=== PATIENT | male | born 2000 | race Caucasian/White ===

== ENCOUNTER 2025-03-01 17:37 | Emergency (ER) | payer SELFPAY ==
[~2025-03-01] VITALS: Ht 180.3 cm; Wt 93.0 kg
[2025-03-01 17:43] VITALS: O2SAT 95
[2025-03-01] MEDS: FOLIC ACID 1 MG, THIAMINE HCL 100 MG, MVI, ADULT NO.1 10 ML in DEXTROSE 5% WATER 1,000 ML IV ONE (18:00)
[2025-03-01 18:52] LABS: BASOPHILS % 0.3 % (0.0-2.0); EOSINOPHILS % 0.3 % (0.0-5.0); HEMATOCRIT. 48.0 % (42.0-52.0); HEMOGLOBIN. 16.5 g/dL (14.0-18.0); LYMPHOCYTES % 40.8 % (20.0-50.0); MEAN PLATELET VOLUME 8.9 fl (7.4-10.4); MONOCYTES % 5.7 % (2.0-8.0); NEUTROPHILS % 52.9 % (40.0-76.0); PLATELET 199 x1000/uL (130-400); RED BLOOD CELL COUNT 5.29 mill/uL (4.7-6.1); RED CELL DISTRIBUTION WIDTH 12.6 % (11.6-14.6)
[2025-03-01 19:11] LABS: CREATININE 1.1 mg/dL (0.6-1.3); UREA NITROGEN BLOOD < 5 mg/dL (9-23)
[2025-03-01 19:13] LABS: ASPARTATE AMINOTRANSFERASE 32 IU/L (<34); BILIRUBIN DIRECT 0.1 mg/dL (<=3.0); BILIRUBIN TOTAL 0.4 mg/dL (0.1-1.0)
[2025-03-01 19:14] LABS: PROTEIN TOTAL 7.6 g/dL (6.0-8.3)
[2025-03-01 19:25] VITALS: TEMP 37
[2025-03-01 19:27] LABS: ETHANOL BLOOD 347 mg/dL (<10)
[2025-03-01 20:30] VITALS: BP 126/92; PULSE 87; RESP 14; O2SAT 100
== END 2025-03-01 20:34 | disposition home or self-care (01) ==
LOC: ER 18:00
DX: R41.82 Altered mental status, unspecified (principal); F10.229 Alcohol dependence with intoxication, unspecified; Y90.8 Blood alcohol level of 240 mg/100 ml or more
CPT/HCPCS: 80076; 80048; 80320; 83735; 85025; 36415; 70450; 72125; 96365; 99285; J3490 ×2; J3411; J7070; Z7610; G0480